=== PATIENT | female | born 1970 | race American Indian/Alaskan Native ===

== ENCOUNTER 2016-08-19 13:58 | Inpatient (IN) | payer OTHER ==
[2016-08-19 14:12] LABS: Basophils % (Auto) 0.4 % (0.0-1.8); Eosinophils % (Auto) 1.7 % (0.0-4.3); Hematocrit 37.3 % (30.3-42.9); Hemoglobin 11.8 gm/dl (10.1-14.3); Mean Corpuscular HGB Conc 32 % (30-34); Mean Corpuscular Hemoglobin 25 pg (28-32); Mean Corpuscular Volume 79 fl (79-97); Platelet Count 282 K/mm3 (140-440); Red Blood Count 4.73 M/mm3 (3.65-5.03); White Blood Count 6.3 K/mm3 (4.5-11.0)
[2016-08-19 14:17] LABS: INR 0.9 (0.87-1.13)
[2016-08-19 14:18] LABS: Partial Thromboplastin Time 29.6 Sec. (24.2-36.6)
--- NOTE | 2016-08-19 14:24 | Cat Scan Report ---
CT HEAD WITHOUT CONTRAST: HISTORY: CVA. Serial contiguous axial images were obtained through the cranium. Intravenous contrast material was not administered. The ventricles are normal in size and appearance. There is no mass effect or midline shift. No areas of abnormally increased or decreased attenuation are seen. No mass lesion is seen. The mastoid air cells and visualized portions of the sinuses are normal. IMPRESSION: Cranial CT scan within normal limits. These findings were discussed with Dr. Garces in the emergency department at 1417 hrs.
[2016-08-19 14:26] LABS: Anion Gap 16 mmol/L; BUN/Creatinine Ratio 11.66; Blood Urea Nitrogen 7 mg/dL (7-17); Calcium 8.4 mg/dL (8.4-10.2); Carbon Dioxide 24 mmol/L (22-30); Chloride 103.6 mmol/L (98-107); Glucose 92 mg/dL (65-100); Potassium 3.1 mmol/L (3.6-5.0); Sodium 140 mmol/L (137-145)
--- NOTE | 2016-08-19 14:46 | Emergency Department Report ---
HPI - General Chief Complaint: Neuro Symptoms/Deficit Time Seen by Provider: 08/19/16 14:01 - HPI HPI: The patient is a 46-year-old female who presents for evaluation of strokelike symptoms. The patient reports sudden onset of change in speech at 12:15 PM, 2 hours prior to arrival, constant since onset and severe. Per EMS the patient was found to have left-sided facial drooping, slurred speech, and difficulty finding words. The patient denies fever, head injury, headache, neck pain, neck stiffness, vision or hearing changes, smell or taste changes, paresthesias, seizure-like activity, urine or bowel incontinence or retention, or other focal neurological deficit. ED Past Medical Hx - Past Medical History Previous Medical History?: No - Surgical History Past Surgical History?: No - Social History Smoking Status: Never Smoker Substance Use Type: None - Medications Home Medications: Home Medications Medication Instructions Recorded Confirmed Last Taken Type No Known Home Medications [No 08/19/16 08/19/16 Unknown History Reported Home Medications] ED Review of Systems ROS: Stated complaint: POSS STROKE Other details as noted in HPI Constitutional: denies: fever Eyes: denies: vision change ENT: denies: throat pain Respiratory: denies: shortness of breath Cardiovascular: denies: chest pain Gastrointestinal: denies: abdominal pain Genitourinary: denies: dysuria Musculoskeletal: denies: back pain Skin: denies: rash Neurological: other (dysarthria and aphasia) Psychiatric: denies: visual hallucinations Hematological/Lymphatic: denies: easy bleeding, easy bruising Physical Exam - Physical Exam Vital Signs: Vital Signs 08/19/16 14:30 Temperature 97.3 F L Pulse Rate 86 Respiratory 16 Rate Blood Pressure 142/87 [Left] O2 Sat by Pulse 99 Oximetry Physical Exam: General: well-nourished, well-developed, no acute distress Head: Normocephalic, atraumatic Eyes: normal sclera ENT: Mucous membranes are pink and moist Neck: trachea midline, neck supple, No neck stiffness, no cervical adenopathy Respiratory: Breath sounds equal bilaterally, no wheezing, rales, or rhonchi Cardio: S1 and S2 present, no murmurs, rubs, gallops, capillary refill is brisk Abdomen: Normoactive bowel sounds, soft abdomen, no rigidity, no guarding or rebound tenderness Musc: No pitting edema Skin: No rash Neuro: Alert oriented 3, no facial drooping, mild dysarthria present, no aphasia, no pronator drift, no sensation or motor deficit in the arms or legs, no coordination deficit with finger to nose testing, reflexes 2+ and symmetric on DTR testing, no obvious gross neuro deficit Psych: Normal affect ED Course Vital Signs 08/19/16 14:30 Temperature 97.3 F L Pulse Rate 86 Respiratory 16 Rate Blood Pressure 142/87 [Left] O2 Sat by Pulse 99 Oximetry - Reevaluation(s) Reevaluation #1: 08/19/16 14:32 The patient was reevaluated and found to exhibit improvement in slurred speech, dysarthria now mild. The patient is now only positive for mild dysarthria and has no expressive aphasia, motor deficit, sensation deficit, or other identifiable focal neurological deficit. The patient is not a candidate for TPA as she only has a Nihs score of 1. The tele-neurologist is contacted to evaluate the patient. 08/19/16 14:49 ED Medical Decision Making - Lab Data Result diagrams: 08/19/16 14:05 08/19/16 14:00 - Medical Decision Making The patient was seen and examined by myself. The patient is placed on a threat monitoring analyst and continuous pulse ox. On initial evaluation, the patient was found to be in no distress. Evaluation orders were placed. CAT scan of the head is negative for acute intracranial disease process. The patient is reevaluated and found to have only mild dysarthria now, resolved aphasia, and no other obvious neuro deficits. The on-call neurologist Dr. León submits that the patient is not a candidate for TPA. The patient given a tablet of aspirin for suspected TIA. The on-call hospitalist service was contacted. They agreed to admit the patient for further treatment and close monitoring. The ED admit order was placed. The patient was admitted in guarded condition. Critical care attestation.: If time is entered above; I have spent that time in minutes in the direct care of this critically ill patient, excluding procedure time. ED Disposition Clinical Impression: CVA (cerebral vascular accident) Qualifiers: CVA mechanism: unspecified Qualified Code(s): I63.9 - Cerebral infarction, unspecified Disposition: OP ADMITTED IP TO THIS HOSP Is pt being admited?: Yes Does the pt Need Aspirin: Yes Condition: Stable Time of Disposition: 15:09
[2016-08-19] MEDS ORDERED: BABY ASPIRIN PO ONE (15:09)
--- NOTE | 2016-08-19 15:37 | Admit Criteria Form ---
Admission Criteria Documentation: STROKE: ISCHEMIC Clinical Indications for Admission to Inpatient Care (Place 'X' for any and all applicable criteria): Admission is indicated for ANY ONE of the following(1)(2)(3)(4): [ X]I. Acute stroke Extended stay beyond goal length of stay may be needed for(1)(2) [ ]a) Major deficit or clinical deterioration [ ]b) Hospital-acquired infection (eg, urinary tract infection, pneumonia) [ ]c) Embolic cause of stroke [ ]d) Venous thromboembolism(9) [ ]e) Seizures [ ]f) Bleeding (eg, cerebral) [ ]g) Increased intracranial pressure [ ]h) Comorbidities [ ]i) Surgical intervention The original [facility] content created by [facility] has been revised. The portions of the content which have been revised are identified through the use of italic text or in bold, and [facility] has neither reviewed nor approved the modified material. All other unmodified content is copyright [facility]. Please see references footnoted in the original [facility] [employer] edition 2016
[2016-08-19 16:27] LABS: Urine Drugs of Abuse Note Disclamer
[2016-08-19 16:43] LABS: Bacteria,Urine 1+ /HPF (Negative); Bilirubin,Urine NEG (Negative); Blood,Urine NEG (Negative); Ketones,Urine NEG (Negative); Leukocyte Esterase,Urine NEG (Negative); Mucus,Urine 2+ /HPF; Nitrite,Urine NEG (Negative); Protein,Urine <15 mg/dL mg/dL (Negative); Urobilinogen,Urine < 2.0 mg/dL (<2.0); WBC,Urine < 1.0 /HPF (0.0-6.0)
--- NOTE | 2016-08-19 18:30 | History and Physical Report ---
History of Present Illness Date of examination: 08/19/16 Date of admission: 08/19/16 15:21 Chief complaint: Right-sided numbness and weakness History of present illness: This is a 46 y/o female with no past medical history presented with right-sided weakness with right-sided facial droop, dysarthria and numbness reported by the EMS. Her symptoms started around 12:00 this afternoon, by the time she presented to the ER she only has dysarthria, but facial droop or right-sided weakness resolved. She also c/o left sided chest pain, pressure type rediates to the back bilaterally, 7/10 in intensity. her chest pain also improved when she came to ER. Her CT of the head didn't show any acute process, K level was 3.1, normal troponin. Neurology did not recommend any TPA as her symptom already started to get better. She'll be admitted to be monitored with stroke protocol. Past medical History: Borderline hypertension not on any medication Past surgical History: None Social History: Lives with family, denies any smoking, drinking and elicit drug abuse. Family History: Significant for CVA in parents. Review of System: Constitutional: no fever, no chills, no weight loss Ears, eyes, nose, mouth and throat: no nasal congestion, no nasal discharge, no sinus pressure, no vision change, no red eye. Neck: No neck pain or rigidity. Cardiovascular: No chest pain, no orthopnea, no palpitations, no leg swelling Respiratory: No shortness of breath, no cough, no congestion, no wheezing Gastrointestinal: no abdominal pain, no nausea, no vomiting Genitourinary : no dysuria, no hematuria Musculoskeletal: no joint swelling or muscle ache Integumentary: no rash, no pruritis Neurological: no parathesias, + numbness, no tingling Endocrine: no cold or heat intolerance, no polyuria or polydipsia Hematologic/Lymphatic: no easy bruising, no easy bleeding, no gland swelling Allergic/Immunologic: no urticaria, no angioedema. Medications and Allergies Allergies Allergy/AdvReac Type Severity Reaction Status Date / Time No Known Allergies Allergy Unverified 08/19/16 14:02 Home Medications Medication Instructions Recorded Confirmed Last Taken Type No Known Home Medications [No 08/19/16 08/19/16 Unknown History Reported Home Medications] Exam - Physical Exam Narrative exam: GENERAL: well-developed obese AAF lying on bed appeared to be in no discomfort. HEENT: Normocephalic. Atraumatic. No conjunctival congestion or icterus. Patient has moist mucous membranes. NECK: Supple. Trachea midline. CHEST/LUNGS: Clear to auscultated bilaterally, breathing nonlabored. No wheezes crackles or rhonchi. HEART/CARDIOVASCULAR: Regular in rate and rhythm. S1 and S2 positive. ABDOMEN: Abdomen is soft, nontender. Patient has normal bowel sounds. SKIN: There is no rash. Warm and dry. NEURO: No focal motor deficit. Follows command. slowed speech w/ slurring MUSCULOSKELETAL: No joint effusion or tenderness. EXTRIMITY: No edema, no cyanosis or clubbing. PSYCH: Cooperative. - Constitutional Vitals: Temp Pulse Resp BP Pulse Ox 97.3 F L 71 18 137/87 98 08/19/16 14:30 08/19/16 16:58 08/19/16 16:58 08/19/16 16:58 08/19/16 16:58 Results - Labs CBC & Chem 7: 08/19/16 14:05 08/21/16 00:19 Labs: Laboratory Last Values WBC 6.3 K/mm3 (4.5-11.0) 08/19/16 14:05 RBC 4.73 M/mm3 (3.65-5.03) 08/19/16 14:05 Hgb 11.8 gm/dl (10.1-14.3) 08/19/16 14:05 Hct 37.3 % (30.3-42.9) 08/19/16 14:05 MCV 79 fl (79-97) 08/19/16 14:05 MCH 25 pg (28-32) L 08/19/16 14:05 MCHC 32 % (30-34) 08/19/16 14:05 RDW 16.0 % (13.2-15.2) H 08/19/16 14:05 Plt Count 282 K/mm3 (140-440) 08/19/16 14:05 Lymph % (Auto) 41.0 % (13.4-35.0) H 08/19/16 14:05 [place] % (Auto) 10.2 % (0.0-7.3) H 08/19/16 14:05 Eos % (Auto) 1.7 % (0.0-4.3) 08/19/16 14:05 Baso % (Auto) 0.4 % (0.0-1.8) 08/19/16 14:05 Lymph # 2.6 K/mm3 (1.2-5.4) 08/19/16 14:05 [place] # 0.6 K/mm3 (0.0-0.8) 08/19/16 14:05 Eos # 0.1 K/mm3 (0.0-0.4) 08/19/16 14:05 Baso # 0.0 K/mm3 (0.0-0.1) 08/19/16 14:05 Seg Neutrophils % 46.7 % (40.0-70.0) 08/19/16 14:05 Seg Neutrophils # 2.9 K/mm3 (1.8-7.7) 08/19/16 14:05 PT 12.0 Sec. (12.2-14.9) L 08/19/16 14:05 INR 0.90 (0.87-1.13) 08/19/16 14:05 APTT 29.6 Sec. (24.2-36.6) 08/19/16 14:05 Thrombin Time 15.8 Sec. (15.1-19.6) 08/19/16 Unknown Sodium 140 mmol/L (137-145) 08/19/16 14:00 Potassium 3.1 mmol/L (3.6-5.0) L 08/19/16 14:00 Chloride 103.6 mmol/L (98-107) 08/19/16 14:00 Carbon Dioxide 24 mmol/L (22-30) 08/19/16 14:00 Anion Gap 16 mmol/L 08/19/16 14:00 BUN 7 mg/dL (7-17) 08/19/16 14:00 Creatinine 0.6 mg/dL (0.7-1.2) L 08/19/16 14:00 Estimated GFR > 60 ml/min 08/19/16 14:00 BUN/Creatinine Ratio 11.66 % 08/19/16 14:00 Glucose 92 mg/dL (65-100) 08/19/16 14:00 Calcium 8.4 mg/dL (8.4-10.2) 08/19/16 14:00 Troponin T < 0.010 ng/mL (0.00-0.029) 08/19/16 14:00 NT-Pro-B Natriuret Pep 77.60 pg/mL (0-450) 08/19/16 14:25 Urine Color Yellow (Yellow) 08/19/16 16:20 Urine Turbidity Cloudy (Clear) 08/19/16 16:20 Urine pH 8.0 (5.0-7.0) H 08/19/16 16:20 Ur Specific [place] 1.014 (1.003-1.030) 08/19/16 16:20 Urine Protein <15 mg/dl mg/dL (Negative) 08/19/16 16:20 Urine Glucose (UA) Neg mg/dL (Negative) 08/19/16 16:20 Urine Ketones Neg mg/dL (Negative) 08/19/16 16:20 Urine Blood Neg (Negative) 08/19/16 16:20 Urine Nitrite Neg (Negative) 08/19/16 16:20 Urine Bilirubin Neg (Negative) 08/19/16 16:20 Urine Urobilinogen < 2.0 mg/dL (<2.0) 08/19/16 16:20 Ur Leukocyte Esterase Neg (Negative) 08/19/16 16:20 Urine WBC (Auto) < 1.0 /HPF (0.0-6.0) 08/19/16 16:20 Urine RBC (Auto) 2.0 /HPF (0.0-6.0) 08/19/16 16:20 U Epithel Cells (Auto) 4.0 /HPF (0-13.0) 08/19/16 16:20 Urine Bacteria (Auto) 1+ /HPF (Negative) 08/19/16 16:20 Urine Mucus 2+ /HPF 08/19/16 16:20 Urine Opiates Screen Presumptive negative 08/19/16 16:20 Urine Methadone Screen Presumptive negative 08/19/16 16:20 Ur Barbiturates Screen Presumptive negative 08/19/16 16:20 Ur Phencyclidine Scrn Presumptive negative 08/19/16 16:20 Ur Amphetamines Screen Presumptive negative 08/19/16 16:20 U Benzodiazepines Scrn Presumptive negative 08/19/16 16:20 Urine Cocaine Screen Presumptive negative 08/19/16 16:20 U Marijuana (THC) Screen Presumptive negative 08/19/16 16:20 Drugs of Abuse Note Disclamer 08/19/16 16:20 Plasma/Serum Alcohol < 0.01 gm% (0-0.07) 08/19/16 14:25 - Imaging and Cardiology CT Scan - head: report reviewed Assessment and Plan Assessment and plan: Acute CVA with right-sided weakness and dysarthria Hypokalemia, likley due to poor oral intake Left sided chest pain, r/o ACS Obesity, likely due to access calorie Plan: Admit to medicine with stroke protocol Get MRI of the head, carotid Doppler, 2-D echocardiogram Obtain a neurology consult monitor with serial troponin Stress test following MRI head PT/OT/ST eval GI and DVT Px place on aspirin and statin Advance Directives: Yes VTE prophylaxis?: Chemical Plan of care discussed with patient/family: Yes
[2016-08-19] MEDS ORDERED: MILK OF MAGNESIA PO PRN (19:00)
[2016-08-19] MEDS ORDERED: TYLENOL PO PRN (19:00)
[2016-08-19] MEDS ORDERED: REGLAN PO PRN (19:00)
[2016-08-19] MEDS ORDERED: ZOFRAN IV PRN (19:00)
[2016-08-19] MEDS ORDERED: DULCOLAX PR PRN (19:00)
[2016-08-19] MEDS ORDERED: SODIUM CHLORIDE FLUSH SYRINGE 10 ML IV PRN (19:00)
[2016-08-19] MEDS ORDERED: APRESOLINE IV PRN (19:00)
[2016-08-19] MEDS ORDERED: PHENERGAN PR PRN (19:00)
[2016-08-20] MEDS: NACL 0.9% 1000 ML 1,000 ML IV SCH ×2 (00:01→14:43)
[2016-08-20] MEDS: PEPCID IV SCH ×3 (00:02→22:02)
[2016-08-20] MEDS: COLACE PO SCH ×3 (00:02→22:02)
[2016-08-20] MEDS: ZOCOR PO SCH ×2 (00:02→22:02)
[2016-08-20] MEDS: PERCOCET 5/325 PO PRN (05:19)
--- NOTE | 2016-08-20 10:14 | Consultation ---
History of Present Illness Consult date: 08/20/16 Requesting physician: MICHELLE GALICIA Reason for Consult: ? 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 Sx started at 12:30 on 08/19 and worsened over minutes before they improved gradually. There was some report of R facial droop and R sided weakness but pt denies. Sx are constant but waxing and waning and generally improving. There were no clear aggravating, relieving or temporal factors. Severity was such to cause her difficulty rising from seated position. She denies any recent stressors that are new stating she is always stressed. Past History Past Medical History: hypertension Past Surgical History: No surgical history Social history: single, Lives alone Family history: hypertension Medications and Allergies Allergies Allergy/AdvReac Type Severity Reaction Status Date / Time No Known Allergies Allergy Unverified 08/19/16 14:02 Home Medications Medication Instructions Recorded Confirmed Last Taken Type No Known Home Medications [No 08/19/16 08/19/16 Unknown History Reported Home Medications] Active Meds: Active Medications Acetaminophen (Tylenol) 650 mg PO Q4H PRN PRN Reason: Pain, Mild (1-3) Aspirin (Aspirin) 325 mg PO QDAY [facility] Bisacodyl (Dulcolax) 10 mg LA QDAY PRN PRN Reason: Constipation Docusate Sodium (Colace) 100 mg PO BID [facility] Last Admin: 08/20/16 00:02 Dose: 100 mg Famotidine (Pepcid) 20 mg IV BID [facility] Last Admin: 08/20/16 00:02 Dose: 20 mg Hydralazine HCl (Apresoline) 5 mg IV Q6H PRN PRN Reason: Keep SBP between 160-185 mm Hg Sodium Chloride (Nacl 0.9% 1000 Ml) 1,000 mls @ 75 mls/hr IV DIRECT [facility] Last Admin: 08/20/16 00:01 Dose: 75 mls/hr Magnesium Hydroxide (Milk Of Magnesia) 30 ml PO Q4H PRN PRN Reason: Constipation Metoclopramide HCl (Reglan) 10 mg PO Q6H PRN PRN Reason: Nausea And Vomiting Ondansetron HCl (Zofran) 4 mg IV Q8H PRN PRN Reason: N/V unrelieved by Reglan Oxycodone/Acetaminophen (Percocet 5/325) 1 tab PO Q6H PRN PRN Reason: Pain, Moderate (4-6) Last Admin: 08/20/16 05:19 Dose: 1 tab Potassium Chloride (K-Dur) 40 meq PO QDAY [facility] Promethazine HCl (Phenergan) 25 mg LA Q6H PRN PRN Reason: Nausea And Vomiting Simvastatin (Zocor) 20 mg PO QHS [facility] Last Admin: 08/20/16 00:02 Dose: 20 mg Sodium Chloride (Sodium Chloride Flush Syringe 10 Ml) 10 ml IV PRN PRN PRN Reason: LINE FLUSH Review of Systems All systems: negative Constitutional: weakness, malaise, lethargy Neurological: weakness, headaches, change in speech Physical Examination - Vital Signs Vital Signs: Vital Signs Temp Pulse Resp BP Pulse Ox 97.3 F L 86 16 142/87 99 08/19/16 14:30 08/19/16 14:30 08/19/16 14:30 08/19/16 14:30 08/19/16 14:30 - Constitutional General appearance: comfortable - EENT EENT: Present: ATNC, PERRL, mucous membranes moist, hearing intact, vision intact - Respiratory Respiratory: Present: chest non-tender, no respiratory distress - Cardiovascular Cardiovascular: Present: regular rate Extremities: Present: no peripheral edema bilatateraly, no clubbing, cyanosis, no inflammation, no ischemia or petechiae - Gastrointestinal Gastrointestinal: Present: normoactive bowel sounds, non-distended - Integumentary Integumentary: Present: normal - Neurologic Cranial nerve examination: PERRL, EOMI, VFF, V1/V2/V3 grossly intact, face symmetric, tongue midline, intact, intact shoulder shrug, intact cough reflex, intact corneal reflex, normal palatal elevation Speech examination: other (slowed speech w/ slurring but irregular and inconsistent) Sensorimotor examination: intact Detailed motor examination: full strength in all radha Motor examination - right side: 5: biceps, triceps, wrist flexion, wrist extension, limnologist, hip flexors, knee extensors, dorsiflexion, toe extension (EHL) , plantarflexion Motor examination - left side: 5/5: biceps, triceps, wrist flexion, wrist extension, limnologist, hip flexors, knee extensors, dorsiflexion, toe extension (EHL) , plantarflexion Detailed sensory examination: intact, light touch, pain, temperature Reflex and gait examination: intact Reflexes: 2+: ankle, bicep, knee, tricep - Musculoskeletal Musculoskeletal: Present: no fluid collection, no pain, normal range of motion - Psychiatric Psychiatric: Present: mood/affect appropriate, cooperative Results - Laboratory Findings CBC and BMP: 08/19/16 14:05 08/19/16 14:00 Abnormal Lab Findings: Abnormal Labs 08/19/16 08/19/16 08/20/16 16:20 19:51 04:19 POC Glucose 121 H HDL Cholesterol 62 H Urine pH 8.0 H Assessment and Plan 46 YO F Hx borderline HTN p/w acute onset of vague constellation of sx including nonspecific dizziness, ARELLANO, slowed slurred speech, L sided chest pain and diffuse weakness ? R sided predominant. Documented Hx in ED/H&P and my Hx are discrepant. Neuro exam intact aside from irregular inconsistent slowed and slurred speech that appears to be functional. I suspect nonorganic neurological sx e.g. factitious disorder. Will obtain imaging to r/o DOCUMENTUM CONSULTANT lesion. Plan and Recommendation: 1. No indication for pharmacologic thrombolysis with IV tPA or mechanical thrombectomy due to last known normal > 6 hrs from presentation. Current NIHSS 1. 2. Telemetry bed w/ Q4 hour neuro checks 3. Brain imaging: MRI Brain w/o Arnold Stroke Protocol 4. If MRI Brain confirms infarct: A. Vascular Imaging: MRA Head w/o Arnold & MRA Neck w/ Arnold Stroke Protocol OR CTA Head/Neck w/ Contrast OR Bilateral Carotid Duplex U/S B. TTE to eval for possible cardiac source of embolism C. Serum Labs: HgA1c, LDL 5. Permissive HTN for first 24-48 hours: HOB < 30 degrees, isotonic IVF prn and refrain from active Tx of HTN unless BP > 185/105 or pt develops malignant HTN. Can lower MAPs by 10-15% daily to reach goal SBP 120-160 after permissive HTN period or if MRI neg for infarction. 6. Secondary stroke prevention: ASA 325mg Daily x 1 then 81mg QDay & upgrade to full dose statin therapy (Crestor 20mg or 40mg OR Lipitor 40mg or 80mg Daily OR Zocor 40mg QDay) for goal LDL < 70. No firm indication at this point for therapeutic anticoagulation as pt has not had AFib captured on telemetry monitoring. If MRI neg for infarct there is no neurologic indication for ASA/ statin. 7. F/E/N: isotonic IVF prn, prn replete, oral diet as pt passed bedside speech/ swallow eval 8. DVT Prophylaxis 9. Stroke education, PT/OT/Speech Therapy consults, CM evaluation 10. For any changes in neurologic status, pls obtain STAT CTH w/o contrast and call neurology 11. Can consider Psych eval as inpatient or oupt if MRI negative
--- NOTE | 2016-08-20 12:50 | Magnetic Resonance Report ---
MRI of the brain without contrast. Procedure: Routine brain protocol without contrast. Findings: There are scattered areas of restricted diffusion in the left lateral aspect of the cerebellar vermis. These are arranged in a somewhat linear distribution in the AP plane. No additional areas of restricted diffusion are seen. Minimal coexistent edema is seen in the vermis. The brainstem appears normal. The ventricles are normal in size and contour. There are no masses or extra-axial collections. The wright-white matter junction is normal treated pituitary gland is unremarkable. The visualized extracranial structures are normal. Impression: Acute infarct involving the cerebellar vermis.
[2016-08-20] MEDS: ASPIRIN PO SCH (13:04)
[2016-08-20] MEDS: K-DUR PO SCH (13:05)
[2016-08-20 14:19] LABS: Anion Gap 18 mmol/L; BUN/Creatinine Ratio 11.66; Blood Urea Nitrogen 7 mg/dL (7-17); Calcium 8.4 mg/dL (8.4-10.2); Carbon Dioxide 23 mmol/L (22-30); Chloride 104.9 mmol/L (98-107); Glucose 102 mg/dL (65-100); Potassium 3.4 mmol/L (3.6-5.0); Sodium 142 mmol/L (137-145)
--- NOTE | 2016-08-20 15:20 | Progress Note ---
Assessment and Plan Assessment and plan: Acute cerebellar vermis CVA with dysarthria Acute chest pain, r/o ACS hypokalemia, likely due to less oral intake Obesity, likely due to access calorie Plan: cont with stroke protocol MRI of the head showed acute CVA, carotid Doppler shows <50% stenosis, 2-D echocardiogram report pending neurology cfollowing PT/OT/ST eval GI and DVT Px cont on aspirin and statin stress test in the am History Interval history: Patient seen and examined. Medical records and medication list reviewed. No acute event overnight noted by the RN. Patient still has significant dysarthia states that chest pain now resolved Discussed plan of care at bedside with patient. Hospitalist Physical - Physical exam Narrative exam: GENERAL: well-developed obese AAF lying on bed appeared to be in no discomfort. HEENT: Normocephalic. Atraumatic. No conjunctival congestion or icterus. Patient has moist mucous membranes. NECK: Supple. Trachea midline. CHEST/LUNGS: Clear to auscultated bilaterally, breathing nonlabored. No wheezes crackles or rhonchi. HEART/CARDIOVASCULAR: Regular in rate and rhythm. S1 and S2 positive. ABDOMEN: Abdomen is soft, nontender. Patient has normal bowel sounds. SKIN: There is no rash. Warm and dry. NEURO: No focal motor deficit. Follows command. slowed speech w/ slurring MUSCULOSKELETAL: No joint effusion or tenderness. EXTRIMITY: No edema, no cyanosis or clubbing. PSYCH: Cooperative. - Constitutional Vitals: Temp Pulse Resp BP Pulse Ox 97.9 F 81 18 133/75 97 08/20/16 13:00 08/20/16 13:00 08/20/16 13:00 08/20/16 13:00 08/20/16 13:00 Results - Labs CBC & Chem 7: 08/19/16 14:05 08/20/16 13:36 Labs: Laboratory Last Values WBC 6.3 K/mm3 (4.5-11.0) 08/19/16 14:05 RBC 4.73 M/mm3 (3.65-5.03) 08/19/16 14:05 Hgb 11.8 gm/dl (10.1-14.3) 08/19/16 14:05 Hct 37.3 % (30.3-42.9) 08/19/16 14:05 MCV 79 fl (79-97) 08/19/16 14:05 MCH 25 pg (28-32) L 08/19/16 14:05 MCHC 32 % (30-34) 08/19/16 14:05 RDW 16.0 % (13.2-15.2) H 08/19/16 14:05 Plt Count 282 K/mm3 (140-440) 08/19/16 14:05 Lymph % (Auto) 41.0 % (13.4-35.0) H 08/19/16 14:05 [place] % (Auto) 10.2 % (0.0-7.3) H 08/19/16 14:05 Eos % (Auto) 1.7 % (0.0-4.3) 08/19/16 14:05 Baso % (Auto) 0.4 % (0.0-1.8) 08/19/16 14:05 Lymph # 2.6 K/mm3 (1.2-5.4) 08/19/16 14:05 [place] # 0.6 K/mm3 (0.0-0.8) 08/19/16 14:05 Eos # 0.1 K/mm3 (0.0-0.4) 08/19/16 14:05 Baso # 0.0 K/mm3 (0.0-0.1) 08/19/16 14:05 Seg Neutrophils % 46.7 % (40.0-70.0) 08/19/16 14:05 Seg Neutrophils # 2.9 K/mm3 (1.8-7.7) 08/19/16 14:05 PT 12.0 Sec. (12.2-14.9) L 08/19/16 14:05 INR 0.90 (0.87-1.13) 08/19/16 14:05 APTT 29.6 Sec. (24.2-36.6) 08/19/16 14:05 Thrombin Time 15.8 Sec. (15.1-19.6) 08/19/16 Unknown Sodium 142 mmol/L (137-145) 08/20/16 13:36 Potassium 3.4 mmol/L (3.6-5.0) L 08/20/16 13:36 Chloride 104.9 mmol/L (98-107) 08/20/16 13:36 Carbon Dioxide 23 mmol/L (22-30) 08/20/16 13:36 Anion Gap 18 mmol/L 08/20/16 13:36 BUN 7 mg/dL (7-17) 08/20/16 13:36 Creatinine 0.6 mg/dL (0.7-1.2) L 08/20/16 13:36 Estimated GFR > 60 ml/min 08/20/16 13:36 BUN/Creatinine Ratio 11.66 % 08/20/16 13:36 Glucose 102 mg/dL (65-100) H 08/20/16 13:36 POC Glucose 121 (70-105) H 08/19/16 19:51 Calcium 8.4 mg/dL (8.4-10.2) 08/20/16 13:36 Troponin T < 0.010 ng/mL (0.00-0.029) 08/20/16 13:36 NT-Pro-B Natriuret Pep 77.60 pg/mL (0-450) 08/19/16 14:25 Triglycerides 56 mg/dL (2-149) 08/20/16 04:19 Cholesterol 167 mg/dL (50-199) 08/20/16 04:19 LDL Cholesterol Direct 94 mg/dL (50-130) 08/20/16 04:19 HDL Cholesterol 62 mg/dL (40-59) H 08/20/16 04:19 Cholesterol/HDL Ratio 2.69 % 08/20/16 04:19 Urine Color Yellow (Yellow) 08/19/16 16:20 Urine Turbidity Cloudy (Clear) 08/19/16 16:20 Urine pH 8.0 (5.0-7.0) H 08/19/16 16:20 Ur Specific [place] 1.014 (1.003-1.030) 08/19/16 16:20 Urine Protein <15 mg/dl mg/dL (Negative) 08/19/16 16:20 Urine Glucose (UA) Neg mg/dL (Negative) 08/19/16 16:20 Urine Ketones Neg mg/dL (Negative) 08/19/16 16:20 Urine Blood Neg (Negative) 08/19/16 16:20 Urine Nitrite Neg (Negative) 08/19/16 16:20 Urine Bilirubin Neg (Negative) 08/19/16 16:20 Urine Urobilinogen < 2.0 mg/dL (<2.0) 08/19/16 16:20 Ur Leukocyte Esterase Neg (Negative) 08/19/16 16:20 Urine WBC (Auto) < 1.0 /HPF (0.0-6.0) 08/19/16 16:20 Urine RBC (Auto) 2.0 /HPF (0.0-6.0) 08/19/16 16:20 U Epithel Cells (Auto) 4.0 /HPF (0-13.0) 08/19/16 16:20 Urine Bacteria (Auto) 1+ /HPF (Negative) 08/19/16 16:20 Urine Mucus 2+ /HPF 08/19/16 16:20 Urine Opiates Screen Presumptive negative 08/19/16 16:20 Urine Methadone Screen Presumptive negative 08/19/16 16:20 Ur Barbiturates Screen Presumptive negative 08/19/16 16:20 Ur Phencyclidine Scrn Presumptive negative 08/19/16 16:20 Ur Amphetamines Screen Presumptive negative 08/19/16 16:20 U Benzodiazepines Scrn Presumptive negative 08/19/16 16:20 Urine Cocaine Screen Presumptive negative 08/19/16 16:20 U Marijuana (THC) Screen Presumptive negative 08/19/16 16:20 Drugs of Abuse Note Disclamer 08/19/16 16:20 Plasma/Serum Alcohol < 0.01 gm% (0-0.07) 08/19/16 14:25 - Imaging and Cardiology CT Scan - head: report reviewed MRI - head: report reviewed
[2016-08-21] MEDS: NACL 0.9% 1000 ML 1,000 ML IV SCH (03:23)
[2016-08-21] MEDS: PERCOCET 5/325 PO PRN (04:40)
[2016-08-21] MEDS ORDERED: LEXISCAN IV ONE (08:42)
--- NOTE | 2016-08-21 10:46 | Progress Note ---
Assessment and Plan 46 YO F Hx borderline HTN p/w acute onset of vague constellation of sx including nonspecific dizziness, ARELLANO, slowed slurred speech, L sided chest pain and diffuse weakness ? R sided predominant. Documented Hx in ED/H&P and my Hx are discrepant. Neuro exam intact aside from irregular inconsistent slowed and slurred speech that appeared to be functional. I suspected nonorganic neurological sx e.g. factitious disorder but surprisingly MRI Brain identified L cerebellar/vermis infarct with unclear mechanism for stroke. CDs neg. TTE neg. LDL 94 Plan and Recommendation: 1. Telemetry bed w/ Q4 hour neuro checks 2. SRIKANTH w/ bubble 3. MRA Head/Neck 4. Stroke in [place] Eval: ESR/CRP, Coags, Toxicology, RPR/VDRL, If Febrile-BCx, LP; Hypercoag screen-Protein C Activity, Protein S Ag, Antithrombin III, Activated Protein C resistance, Factor V Leiden, RVVT or APLAbs, Beta-2 GP Ab, Fibrinogen, Prothrombin gene [id number] mutation, MTHFR C677T, JIL-1, HIV, TERE, Lactic Acid, Homocysteine, Cryoglobulin, Complement level, ANCA, Scl-70 Ab, anti -centromere Ab, Anti-Ro (SSA)/Anti-La (SSB), SCAR, Antiproteinase 3, Lipoprotein A, 5. Can lower MAPs by 10-15% daily to reach goal SBP 120-160 as permissive HTN period complete. 6. Secondary stroke prevention: ASA 325mg Daily x 1 then 81mg QDay & upgrade to full dose statin therapy (Crestor 20mg or 40mg OR Lipitor 40mg or 80mg Daily OR Zocor 40mg QDay) for goal LDL < 70. 7. F/E/N: isotonic IVF prn, prn replete, oral diet as pt passed bedside speech/ swallow eval 8. DVT Prophylaxis 9. Stroke education, PT/OT/Speech Therapy consults, CM evaluation 10. For any changes in neurologic status, pls obtain STAT CTH w/o contrast and call neurology Subjective Date of service: 08/21/16 Principal diagnosis: slurred speech, weakness Interval history: improved presenting sx. MRI completed. Objective - Vital Sign Vital Signs - 12hr 08/21/16 08/21/16 08/21/16 00:00 04:00 09:18 Temperature 98.5 F 98.1 F 97.9 F Pulse Rate [ 72 68 68 Right Radial] Respiratory 18 18 18 Rate Blood Pressure 114/68 133/81 122/71 [Right Arm] O2 Sat by Pulse 98 97 96 Oximetry - General Apperance Constitutional: comfortable - EENT EENT: ATNC, PERRL, mucous membranes moist, hearing intact, vision intact - Respiratory Respiratory: chest non-tender, normal breath sounds, no respiratory distress - Cardiovascular Cardiovascular: regular rate Extremities: no peripheral edema bilat, no clubbing, cyanosis, no inflammation, no ischemia or petechiae - Gastrointestinal Gastrointestinal: normoactive bowel sounds, non-distended - Integumentary Integumentary: normal - Neurologic Cranial nerve examination: PERRL, EOMI, VFF, V1/V2/V3 grossly intact, face symmetric, tongue midline, intact, intact shoulder shrug, intact cough reflex, Intact Vestibulo-ocular r, intact corneal reflex, normal palatal elevation Speech examination: other (slight dysarthria) Detailed motor examination: full strength in all radha Motor examination - right side: 5/5: biceps, triceps, wrist flexion, wrist extension, rv mechanic, hip flexors, knee extensors, dorsiflexion, toe extension (EHL) , plantarflexion Motor examination - left side: 5/5: biceps, triceps, wrist flexion, wrist extension, rv mechanic, hip flexors, knee extensors, dorsiflexion, toe extension (EHL) , plantarflexion Detailed sensory examination: intact, light touch, temperature Reflex and gait examination: intact Reflexes: 2+: ankle, bicep, knee, tricep - Musculoskeletal Musculoskeletal: no fluid collection, no pain, normal range of motion - Psychiatric Psychiatric: mood/affect appropriate, cooperative - Laboratory Findings CBC and BMP: 08/19/16 14:05 08/21/16 00:19 Abnormal Lab Findings: Abnormal Labs 08/19/16 08/19/16 08/20/16 16:20 19:51 04:19 Potassium Creatinine Glucose POC Glucose 121 H HDL Cholesterol 62 H Urine pH 8.0 H 08/20/16 13:36 Potassium 3.4 L Creatinine 0.6 L Glucose 102 H POC Glucose HDL Cholesterol Urine pH
--- NOTE | 2016-08-21 11:22 | Treadmill Report ---
INDICATION FOR PROCEDURE: Chest pain. ORDERING PHYSICIAN: Reina Pulliam MD FINDINGS: There is no scintigraphic evidence of myocardial ischemia. The left ventricle is normal in size and systolic function. The left ventricular ejection fraction is measured at 59%. Normal wall motion and wall thickening is noted on gated imaging. CONCLUSION: Normal perfusion scan. JOB# [id number] AKYulissa/NTS
[2016-08-21] MEDS: ASPIRIN PO SCH (12:14)
[2016-08-21] MEDS: K-DUR PO SCH (12:14)
[2016-08-21] MEDS: COLACE PO SCH ×2 (12:14→21:54)
[2016-08-21] MEDS: PEPCID IV SCH (12:14)
--- NOTE | 2016-08-21 12:53 | Magnetic Resonance Report ---
MRA HEAD WITHOUT CONTRAST HISTORY: Stroke, CVA. [id number] imaging with MIP reformations of the [place] of [place] is submitted. The arteries appear widely patent and free of hemodynamically significant stenosis or aneurysm dilatation. Both vertebral arteries are identified appearing patent as well. IMPRESSION: Unremarkable MRA head.
--- NOTE | 2016-08-21 12:53 | Magnetic Resonance Report ---
MRA NECK WITH AND WITHOUT CONTRAST HISTORY: Stroke, CVA. TECHNIQUE: [id number] imaging with MIP reformations of the carotid arterial system is submitted. FINDINGS: The carotid arteries appear widely patent free of hemodynamically significant stenosis or aneurysm dilatation. Both vertebral arteries are identified appearing patent as well. An aortic arch variance is present. The left vertebral artery arises from the aortic arch. IMPRESSION: Unremarkable MRA of the neck. No evidence for dissection or occlusion.
[2016-08-21 13:15] LABS: Erythrocyte Sedimentation Rate 41 mm/Hr (0-20)
--- NOTE | 2016-08-21 13:24 | Progress Note ---
Assessment and Plan Assessment and plan: Acute CVA with right-sided weakness and dysarthria Hypokalemia, likley due to poor oral intake Left sided chest pain, ACS rulled out, liklely musculoskeletal Obesity, likely due to access calorie Plan: cont with stroke protocol MRI of the head showed acute CVA, carotid Doppler shows <50% stenosis, 2-D echocardiogram with normal EF, stress test normal neurology following and recommended SRIKANTH with bubble study and hypercoaguable work up GI and DVT Px cont on aspirin and statin consult cardiology History Interval history: Patient seen and examined. Medical records and medication list reviewed. No acute event overnight noted by the RN. Patient is asymptomatic today s/p stress test today and that was normal Discussed plan of care at bedside with patient. Hospitalist Physical - Physical exam Narrative exam: GENERAL: well-developed obese AAF lying on bed appeared to be in no discomfort. HEENT: Normocephalic. Atraumatic. No conjunctival congestion or icterus. Patient has moist mucous membranes. NECK: Supple. Trachea midline. CHEST/LUNGS: Clear to auscultated bilaterally, breathing nonlabored. No wheezes crackles or rhonchi. HEART/CARDIOVASCULAR: Regular in rate and rhythm. S1 and S2 positive. ABDOMEN: Abdomen is soft, nontender. Patient has normal bowel sounds. SKIN: There is no rash. Warm and dry. NEURO: No focal motor deficit. Follows command. speech normal MUSCULOSKELETAL: No joint effusion or tenderness. EXTRIMITY: No edema, no cyanosis or clubbing. PSYCH: Cooperative. - Constitutional Vitals: Temp Pulse Resp BP Pulse Ox 97.9 F 68 18 122/71 96 08/21/16 09:18 08/21/16 09:18 08/21/16 09:18 08/21/16 09:18 08/21/16 09:18 Results - Labs CBC & Chem 7: 08/19/16 14:05 08/21/16 00:19 Labs: Laboratory Last Values WBC 6.3 K/mm3 (4.5-11.0) 08/19/16 14:05 RBC 4.73 M/mm3 (3.65-5.03) 08/19/16 14:05 Hgb 11.8 gm/dl (10.1-14.3) 08/19/16 14:05 Hct 37.3 % (30.3-42.9) 08/19/16 14:05 MCV 79 fl (79-97) 08/19/16 14:05 MCH 25 pg (28-32) L 08/19/16 14:05 MCHC 32 % (30-34) 08/19/16 14:05 RDW 16.0 % (13.2-15.2) H 08/19/16 14:05 Plt Count 282 K/mm3 (140-440) 08/19/16 14:05 Lymph % (Auto) 41.0 % (13.4-35.0) H 08/19/16 14:05 [place] % (Auto) 10.2 % (0.0-7.3) H 08/19/16 14:05 Eos % (Auto) 1.7 % (0.0-4.3) 08/19/16 14:05 Baso % (Auto) 0.4 % (0.0-1.8) 08/19/16 14:05 Lymph # 2.6 K/mm3 (1.2-5.4) 08/19/16 14:05 [place] # 0.6 K/mm3 (0.0-0.8) 08/19/16 14:05 Eos # 0.1 K/mm3 (0.0-0.4) 08/19/16 14:05 Baso # 0.0 K/mm3 (0.0-0.1) 08/19/16 14:05 Seg Neutrophils % 46.7 % (40.0-70.0) 08/19/16 14:05 Seg Neutrophils # 2.9 K/mm3 (1.8-7.7) 08/19/16 14:05 ESR 41 mm/Hr (0-20) 08/21/16 12:15 PT 12.0 Sec. (12.2-14.9) L 08/19/16 14:05 INR 0.90 (0.87-1.13) 08/19/16 14:05 APTT 29.6 Sec. (24.2-36.6) 08/19/16 14:05 Thrombin Time 15.8 Sec. (15.1-19.6) 08/19/16 Unknown Sodium 142 mmol/L (137-145) 08/20/16 13:36 Potassium 3.7 mmol/L (3.6-5.0) 08/21/16 00:19 Chloride 104.9 mmol/L (98-107) 08/20/16 13:36 Carbon Dioxide 23 mmol/L (22-30) 08/20/16 13:36 Anion Gap 18 mmol/L 08/20/16 13:36 BUN 7 mg/dL (7-17) 08/20/16 13:36 Creatinine 0.6 mg/dL (0.7-1.2) L 08/20/16 13:36 Estimated GFR > 60 ml/min 08/20/16 13:36 BUN/Creatinine Ratio 11.66 % 08/20/16 13:36 Glucose 102 mg/dL (65-100) H 08/20/16 13:36 POC Glucose 121 (70-105) H 08/19/16 19:51 Lactic Acid 0.8 mmol/L (0.7-2.0) 08/21/16 12:15 Calcium 8.4 mg/dL (8.4-10.2) 08/20/16 13:36 Troponin T < 0.010 ng/mL (0.00-0.029) 08/21/16 04:29 NT-Pro-B Natriuret Pep 77.60 pg/mL (0-450) 08/19/16 14:25 Triglycerides 56 mg/dL (2-149) 08/20/16 04:19 Cholesterol 167 mg/dL (50-199) 08/20/16 04:19 LDL Cholesterol Direct 94 mg/dL (50-130) 08/20/16 04:19 HDL Cholesterol 62 mg/dL (40-59) H 08/20/16 04:19 Cholesterol/HDL Ratio 2.69 % 08/20/16 04:19 Urine Color Yellow (Yellow) 08/19/16 16:20 Urine Turbidity Cloudy (Clear) 08/19/16 16:20 Urine pH 8.0 (5.0-7.0) H 08/19/16 16:20 Ur Specific [place] 1.014 (1.003-1.030) 08/19/16 16:20 Urine Protein <15 mg/dl mg/dL (Negative) 08/19/16 16:20 Urine Glucose (UA) Neg mg/dL (Negative) 08/19/16 16:20 Urine Ketones Neg mg/dL (Negative) 08/19/16 16:20 Urine Blood Neg (Negative) 08/19/16 16:20 Urine Nitrite Neg (Negative) 08/19/16 16:20 Urine Bilirubin Neg (Negative) 08/19/16 16:20 Urine Urobilinogen < 2.0 mg/dL (<2.0) 08/19/16 16:20 Ur Leukocyte Esterase Neg (Negative) 08/19/16 16:20 Urine WBC (Auto) < 1.0 /HPF (0.0-6.0) 08/19/16 16:20 Urine RBC (Auto) 2.0 /HPF (0.0-6.0) 08/19/16 16:20 U Epithel Cells (Auto) 4.0 /HPF (0-13.0) 08/19/16 16:20 Urine Bacteria (Auto) 1+ /HPF (Negative) 08/19/16 16:20 Urine Mucus 2+ /HPF 08/19/16 16:20 Urine Opiates Screen Presumptive negative 08/19/16 16:20 Urine Methadone Screen Presumptive negative 08/19/16 16:20 Ur Barbiturates Screen Presumptive negative 08/19/16 16:20 Ur Phencyclidine Scrn Presumptive negative 08/19/16 16:20 Ur Amphetamines Screen Presumptive negative 08/19/16 16:20 U Benzodiazepines Scrn Presumptive negative 08/19/16 16:20 Urine Cocaine Screen Presumptive negative 08/19/16 16:20 U Marijuana (THC) Screen Presumptive negative 08/19/16 16:20 Drugs of Abuse Note Disclamer 08/19/16 16:20 Plasma/Serum Alcohol < 0.01 gm% (0-0.07) 08/19/16 14:25
[2016-08-21 14:05] LABS: HIV-1 Antigen p24 Non React (Non React); HIVR-1/2 Ab Non React (Non React)
--- NOTE | 2016-08-21 15:27 | Consultation ---
History of Present Illness Consult date: 08/21/16 History of present illness: This is a 46yr old woman who presented 08/19 with acute onset of slurred speech and facial droop admitted for suspected CVA. Patient considered not a candidate for IV TPA as her symptoms resolved while in the ED. A Head CT negative for acute intracranial process. MRA of head reports no acute abnormalities. Today she had a persantine stress thallium test that reports a normal myocardial perfusion. An echocardiogram reports a normal left ventricular systolic function, ejection fraction 50-55%. Neurologist has recommended a SRIKANTH with bubble study for further evaluation thus this cardiac consultation. Past History Past Medical History: hypertension Past Surgical History: No surgical history Social history: single, Lives alone Family history: hypertension Medications and Allergies Allergies Allergy/AdvReac Type Severity Reaction Status Date / Time No Known Allergies Allergy Unverified 08/19/16 14:02 Home Medications Medication Instructions Recorded Confirmed Last Taken Type No Known Home Medications [No 08/19/16 08/19/16 Unknown History Reported Home Medications] Active Meds: Active Medications Acetaminophen (Tylenol) 650 mg PO Q4H PRN PRN Reason: Pain, Mild (1-3) Aspirin (Aspirin) 325 mg PO QDAY [facility] Last Admin: 08/21/16 12:14 Dose: 325 mg Bisacodyl (Dulcolax) 10 mg ME QDAY PRN PRN Reason: Constipation Docusate Sodium (Colace) 100 mg PO BID [facility] Last Admin: 08/21/16 12:14 Dose: 100 mg Famotidine (Pepcid) 20 mg IV BID [facility] Last Admin: 08/21/16 12:14 Dose: Not Given Hydralazine HCl (Apresoline) 5 mg IV Q6H PRN PRN Reason: Keep SBP between 160-185 mm Hg Sodium Chloride (Nacl 0.9% 1000 Ml) 1,000 mls @ 75 mls/hr IV DIRECT [facility] Last Admin: 08/21/16 03:23 Dose: 75 mls/hr Magnesium Hydroxide (Milk Of Magnesia) 30 ml PO Q4H PRN PRN Reason: Constipation Metoclopramide HCl (Reglan) 10 mg PO Q6H PRN PRN Reason: Nausea And Vomiting Ondansetron HCl (Zofran) 4 mg IV Q8H PRN PRN Reason: N/V unrelieved by Reglan Oxycodone/Acetaminophen (Percocet 5/325) 1 tab PO Q6H PRN PRN Reason: Pain, Moderate (4-6) Last Admin: 08/21/16 04:40 Dose: 1 tab Potassium Chloride (K-Dur) 40 meq PO QDAY [facility] Last Admin: 08/21/16 12:14 Dose: 40 meq Promethazine HCl (Phenergan) 25 mg ME Q6H PRN PRN Reason: Nausea And Vomiting Simvastatin (Zocor) 40 mg PO QHS [facility] Sodium Chloride (Sodium Chloride Flush Syringe 10 Ml) 10 ml IV PRN PRN PRN Reason: LINE FLUSH Physical Examination Vital Signs Temp Pulse Resp BP Pulse Ox 97.3 F L 86 16 142/87 99 08/19/16 14:30 08/19/16 14:30 08/19/16 14:30 08/19/16 14:30 08/19/16 14:30 General appearance: no acute distress HEENT: Positive: PERRL Neck: Positive: trachea midline Cardiac: Positive: Reg Rate and Rhythm Lungs: Positive: Decreased Breath Sounds Neuro: Positive: Grossly Intact Results 08/19/16 14:05 08/21/16 00:19 Comprehensive Metabolic Panel 08/21/16 Range/Units 00:19 Potassium 3.7 (3.6-5.0) mmol/L EKG interpretations - EKG Sinus rhythms and dysrhythmias: sinus rhythm Assessment and Plan Suspected TIA normal myocardial perfusion on MPI this admission normal LVEF on echo Head CT negative for acute intracranial process MRA of head reports no acute abnormalities For planned transesophagel echocardiogram tomorrow.
[2016-08-21] MEDS: PEPCID PO SCH (21:54)
[2016-08-21] MEDS ORDERED: ZOCOR PO SCH ×2 (22:00)
[2016-08-22] MEDS: PERCOCET 5/325 PO PRN (08:03)
--- NOTE | 2016-08-22 09:35 | Progress Note ---
Assessment and Plan 46 YO F Hx borderline HTN p/w acute onset of vague constellation of sx including nonspecific dizziness, ARELLANO, slowed slurred speech, L sided chest pain and diffuse weakness ? R sided predominant. Documented Hx in ED/H&P and my Hx are discrepant. Neuro exam intact aside from irregular inconsistent slowed and slurred speech that appeared to be functional. I suspected nonorganic neurological sx e.g. factitious disorder but surprisingly MRI Brain identified L cerebellar/vermis infarct with unclear mechanism for stroke. CDs neg. TTE neg. LDL 94. MRA Head/Neck neg. Plan and Recommendation: 1. Telemetry bed w/ Q4 hour neuro checks 2. SRIKANTH w/ bubble 08/22 3. Stroke in [place] Eval: ESR/CRP, Coags, Toxicology, RPR/VDRL, If Febrile-BCx, LP; Hypercoag screen-Protein C Activity, Protein S Ag, Antithrombin III, Activated Protein C resistance, Factor V Leiden, RVVT or APLAbs, Beta-2 GP Ab, Fibrinogen, Prothrombin gene 27337H mutation, MTHFR C677T, JIL-1, HIV, TERE, Lactic Acid, Homocysteine, Cryoglobulin, Complement level, ANCA, Scl-70 Ab, anti -centromere Ab, Anti-Ro (SSA)/Anti-La (SSB), SCAR, Antiproteinase 3, Lipoprotein A, 5. Can lower MAPs by 10-15% daily to reach goal SBP 120-160 as permissive HTN period complete. 6. Secondary stroke prevention: ASA 325mg Daily x 1 then 81mg QDay & upgrade to full dose statin therapy (Crestor 20mg or 40mg OR Lipitor 40mg or 80mg Daily OR Zocor 40mg QDay) for goal LDL < 70. 7. F/E/N: isotonic IVF prn, prn replete, oral diet as pt passed bedside speech/ swallow eval 8. DVT Prophylaxis 9. Stroke education, PT/OT/Speech Therapy consults, CM evaluation 10. For any changes in neurologic status, pls obtain STAT CTH w/o contrast and call neurology 11. Pt can be D/C if SRIKANTH neg for ASD/PFO or other cardiac source of embolism. Subjective Principal diagnosis: slurred speech, weakness Interval history: improving speech Objective - Vital Sign Vital Signs - 12hr 08/22/16 08/22/16 08/22/16 00:05 00:51 05:14 Temperature 97.6 F 98.2 F Pulse Rate 88 Pulse Rate [ 84 63 Apical] Pulse Rate [ Right Radial] Respiratory 18 20 Rate Blood Pressure 121/68 138/82 [Right Arm] O2 Sat by Pulse 94 100 Oximetry 08/22/16 08:56 Temperature 98.1 F Pulse Rate Pulse Rate [ Apical] Pulse Rate [ 65 Right Radial] Respiratory 18 Rate Blood Pressure 133/80 [Right Arm] O2 Sat by Pulse 99 Oximetry - General Apperance Constitutional: comfortable - EENT EENT: ATNC, PERRL, mucous membranes moist, hearing intact, vision intact - Respiratory Respiratory: chest non-tender, normal breath sounds, no respiratory distress - Cardiovascular Cardiovascular: regular rate Extremities: no peripheral edema bilat, no clubbing, cyanosis, no inflammation, no ischemia or petechiae - Gastrointestinal Gastrointestinal: normoactive bowel sounds, non-distended - Integumentary Integumentary: normal - Neurologic Cranial nerve examination: PERRL, EOMI, VFF, V1/V2/V3 grossly intact, face symmetric, tongue midline, intact, intact shoulder shrug, intact cough reflex, Intact Vestibulo-ocular r, intact corneal reflex, normal palatal elevation Speech examination: intact Detailed motor examination: full strength in all radha Motor examination - right side: 5/5: biceps, triceps, wrist flexion, wrist extension, 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, hip flexors, knee extensors, dorsiflexion, toe extension (EHL) , plantarflexion Motor examination - left side: 5/5: biceps, triceps, wrist flexion, wrist extension, 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, hip flexors, knee extensors, dorsiflexion, toe extension (EHL) , plantarflexion Detailed sensory examination: intact, light touch Reflex and gait examination: intact Reflexes: 2+: ankle, bicep, knee, tricep - Musculoskeletal Musculoskeletal: no fluid collection, no pain, normal range of motion - Psychiatric Psychiatric: mood/affect appropriate, cooperative - Laboratory Findings CBC and BMP: 08/19/16 14:05 08/21/16 00:19 Abnormal Lab Findings: Abnormal Labs 08/19/16 08/19/16 08/20/16 16:20 19:51 04:19 Fibrinogen Potassium Creatinine Glucose POC Glucose 121 H HDL Cholesterol 62 H Urine pH 8.0 H 08/20/16 08/21/16 13:36 12:15 Fibrinogen 521 H Potassium 3.4 L Creatinine 0.6 L Glucose 102 H POC Glucose HDL Cholesterol Urine pH
[2016-08-22] MEDS: PEPCID PO SCH (10:01)
[2016-08-22] MEDS: K-DUR PO SCH (10:01)
[2016-08-22] MEDS: COLACE PO SCH (10:01)
[2016-08-22] MEDS: ASPIRIN PO SCH (10:05)
[2016-08-22] MEDS ORDERED: ASPIRIN PO SCH (10:50)
--- NOTE | 2016-08-22 10:57 | Progress Note ---
Assessment and Plan Suspected CVA normal myocardial perfusion on MPI this admission normal LVEF on echo Head CT negative for acute intracranial process MRA of head reports no acute abnormalities For planned SRIKANTH today. Subjective Date of service: 08/22/16 Principal diagnosis: slurred speech, weakness Interval history: For SRIKANTH today. Objective Vital Signs Temp Pulse Pulse Pulse Pulse Resp BP 08/22/16 10:00 18 08/22/16 08:56 98.1 F 65 18 133/80 08/22/16 05:14 98.2 F 63 20 138/82 08/22/16 00:51 88 08/22/16 00:05 97.6 F 84 18 121/68 08/21/16 20:50 72 20 08/21/16 19:48 98.9 F 88 20 111/63 08/21/16 18:06 98.4 F 90 18 133/69 08/21/16 13:00 99 H Pulse Ox 08/22/16 10:00 08/22/16 08:56 99 08/22/16 05:14 100 08/22/16 00:51 08/22/16 00:05 94 08/21/16 20:50 08/21/16 19:48 97 08/21/16 18:06 96 08/21/16 13:00 - Physical Examination General: No Apparent Distress HEENT: Positive: PERRL Neck: Positive: trachea midline Cardiac: Positive: Reg Rate and Rhythm Lungs: Positive: Decreased Breath Sounds Neuro: Positive: Grossly Intact - EKG Sinus rhythms and dysrhythmias: sinus rhythm
[2016-08-22] MEDS ORDERED: VERSED IV ONE ×2 (12:38→12:47)
[2016-08-22] MEDS ORDERED: HURRICAINE ONE 20% TOPICAL SPRAY MM (12:38)
[2016-08-22] MEDS ORDERED: SUBLIMAZE ONE (12:38)
[2016-08-22] MEDS ORDERED: SUBLIMAZE IV ONE (12:47)
[2016-08-22] MEDS ORDERED: HURRICAINE ONE 20% TOPICAL SPRAY MM NR (13:00)
--- NOTE | 2016-08-22 14:13 | Progress Note ---
Assessment and Plan Assessment and plan: Acute CVA with right-sided weakness and dysarthria Hypokalemia, likley due to poor oral intake Left sided chest pain, ACS rulled out, liklely musculoskeletal Obesity, likely due to access calorie Patent foramen Ovale, out patient follow up Plan: cont with stroke protocol MRI of the head showed acute CVA, carotid Doppler shows <50% stenosis, 2-D echocardiogram with normal EF, stress test normal neurology following and recommended SRIKANTH with bubble study and hypercoaguable work up SRIKANTH showed PFO, will get venous doppler of the LE for possible DVT cont GI and DVT Px cont on aspirin and statin History Interval history: Patient seen and examined. Medical records and medication list reviewed. No acute event overnight noted by the RN. Patient is asymptomatic today s/p SRIKANTH today and that showed patent PFO Discussed plan of care at bedside with patient. Hospitalist Physical - Physical exam Narrative exam: GENERAL: well-developed obese AAF lying on bed appeared to be in no discomfort. HEENT: Normocephalic. Atraumatic. No conjunctival congestion or icterus. Patient has moist mucous membranes. NECK: Supple. Trachea midline. CHEST/LUNGS: Clear to auscultated bilaterally, breathing nonlabored. No wheezes crackles or rhonchi. HEART/CARDIOVASCULAR: Regular in rate and rhythm. S1 and S2 positive. ABDOMEN: Abdomen is soft, nontender. Patient has normal bowel sounds. SKIN: There is no rash. Warm and dry. NEURO: No focal motor deficit. Follows command. speech normal MUSCULOSKELETAL: No joint effusion or tenderness. EXTRIMITY: No edema, no cyanosis or clubbing. PSYCH: Cooperative. - Constitutional Vitals: Temp Pulse Resp BP Pulse Ox 98.8 F 86 18 121/58 99 08/22/16 13:25 08/22/16 13:25 08/22/16 13:25 08/22/16 13:25 08/22/16 13:25 General appearance: Present: no acute distress Results - Labs CBC & Chem 7: 08/19/16 14:05 08/21/16 00:19 Labs: Laboratory Last Values WBC 6.3 K/mm3 (4.5-11.0) 08/19/16 14:05 RBC 4.73 M/mm3 (3.65-5.03) 08/19/16 14:05 Hgb 11.8 gm/dl (10.1-14.3) 08/19/16 14:05 Hct 37.3 % (30.3-42.9) 08/19/16 14:05 MCV 79 fl (79-97) 08/19/16 14:05 MCH 25 pg (28-32) L 08/19/16 14:05 MCHC 32 % (30-34) 08/19/16 14:05 RDW 16.0 % (13.2-15.2) H 08/19/16 14:05 Plt Count 282 K/mm3 (140-440) 08/19/16 14:05 Lymph % (Auto) 41.0 % (13.4-35.0) H 08/19/16 14:05 [place] % (Auto) 10.2 % (0.0-7.3) H 08/19/16 14:05 Eos % (Auto) 1.7 % (0.0-4.3) 08/19/16 14:05 Baso % (Auto) 0.4 % (0.0-1.8) 08/19/16 14:05 Lymph # 2.6 K/mm3 (1.2-5.4) 08/19/16 14:05 [place] # 0.6 K/mm3 (0.0-0.8) 08/19/16 14:05 Eos # 0.1 K/mm3 (0.0-0.4) 08/19/16 14:05 Baso # 0.0 K/mm3 (0.0-0.1) 08/19/16 14:05 Seg Neutrophils % 46.7 % (40.0-70.0) 08/19/16 14:05 Seg Neutrophils # 2.9 K/mm3 (1.8-7.7) 08/19/16 14:05 ESR 41 mm/Hr (0-20) 08/21/16 12:15 PT 12.0 Sec. (12.2-14.9) L 08/19/16 14:05 INR 0.90 (0.87-1.13) 08/19/16 14:05 APTT 29.6 Sec. (24.2-36.6) 08/19/16 14:05 Thrombin Time 15.8 Sec. (15.1-19.6) 08/19/16 Unknown Fibrinogen 521 mg/dl (211-480) H 08/21/16 12:15 Sodium 142 mmol/L (137-145) 08/20/16 13:36 Potassium 3.7 mmol/L (3.6-5.0) 08/21/16 00:19 Chloride 104.9 mmol/L (98-107) 08/20/16 13:36 Carbon Dioxide 23 mmol/L (22-30) 08/20/16 13:36 Anion Gap 18 mmol/L 08/20/16 13:36 BUN 7 mg/dL (7-17) 08/20/16 13:36 Creatinine 0.6 mg/dL (0.7-1.2) L 08/20/16 13:36 Estimated GFR > 60 ml/min 08/20/16 13:36 BUN/Creatinine Ratio 11.66 % 08/20/16 13:36 Glucose 102 mg/dL (65-100) H 08/20/16 13:36 POC Glucose 121 (70-105) H 08/19/16 19:51 Lactic Acid 0.8 mmol/L (0.7-2.0) 08/21/16 12:15 Calcium 8.4 mg/dL (8.4-10.2) 08/20/16 13:36 Troponin T < 0.010 ng/mL (0.00-0.029) 08/21/16 04:29 C-Reactive Protein 0.20 mg/dL (0.00-1.30) 08/21/16 12:15 NT-Pro-B Natriuret Pep 77.60 pg/mL (0-450) 08/19/16 14:25 Triglycerides 56 mg/dL (2-149) 08/20/16 04:19 Cholesterol 167 mg/dL (50-199) 08/20/16 04:19 LDL Cholesterol Direct 94 mg/dL (50-130) 08/20/16 04:19 HDL Cholesterol 62 mg/dL (40-59) H 08/20/16 04:19 Cholesterol/HDL Ratio 2.69 % 08/20/16 04:19 Urine Color Yellow (Yellow) 08/19/16 16:20 Urine Turbidity Cloudy (Clear) 08/19/16 16:20 Urine pH 8.0 (5.0-7.0) H 08/19/16 16:20 Ur Specific [place] 1.014 (1.003-1.030) 08/19/16 16:20 Urine Protein <15 mg/dl mg/dL (Negative) 08/19/16 16:20 Urine Glucose (UA) Neg mg/dL (Negative) 08/19/16 16:20 Urine Ketones Neg mg/dL (Negative) 08/19/16 16:20 Urine Blood Neg (Negative) 08/19/16 16:20 Urine Nitrite Neg (Negative) 08/19/16 16:20 Urine Bilirubin Neg (Negative) 08/19/16 16:20 Urine Urobilinogen < 2.0 mg/dL (<2.0) 08/19/16 16:20 Ur Leukocyte Esterase Neg (Negative) 08/19/16 16:20 Urine WBC (Auto) < 1.0 /HPF (0.0-6.0) 08/19/16 16:20 Urine RBC (Auto) 2.0 /HPF (0.0-6.0) 08/19/16 16:20 U Epithel Cells (Auto) 4.0 /HPF (0-13.0) 08/19/16 16:20 Urine Bacteria (Auto) 1+ /HPF (Negative) 08/19/16 16:20 Urine Mucus 2+ /HPF 08/19/16 16:20 Urine Opiates Screen Presumptive negative 08/19/16 16:20 Urine Methadone Screen Presumptive negative 08/19/16 16:20 Ur Barbiturates Screen Presumptive negative 08/19/16 16:20 Ur Phencyclidine Scrn Presumptive negative 08/19/16 16:20 Ur Amphetamines Screen Presumptive negative 08/19/16 16:20 U Benzodiazepines Scrn Presumptive negative 08/19/16 16:20 Urine Cocaine Screen Presumptive negative 08/19/16 16:20 U Marijuana (THC) Screen Presumptive negative 08/19/16 16:20 Drugs of Abuse Note Disclamer 08/19/16 16:20 Plasma/Serum Alcohol < 0.01 gm% (0-0.07) 08/19/16 14:25 RPR Nonreactive (Nonreactive) 08/21/16 12:15 HIV 1&2 Antibody Rapid Non react (Non React) 08/21/16 12:15 HIV P24 Antigen Non react (Non React) 08/21/16 12:15
[2016-08-22 15:56] VITALS: BP 117/76
--- NOTE | 2016-08-22 16:14 | Discharge Summary ---
Providers - Providers Date of Admission: 08/19/16 15:21 Date of discharge: 08/22/16 Attending physician: MICHELLE GALICIA 08/19/16 Consult to Physician [CONS] Routine Consulting Provider: NBA BURTON Reason For Exam: acute cva Place consult to:: neurology Notified:: Rio JORDAN Phone number called:: Ext [phone] Was contact made?: Yes If yes, spoke with:: Voicemail with consult info left for Jazminchase RodasOsiel Time called:: 08:01 08/19/16 19:00 Consult to Case Management [CONS] Routine Services Needed at Discharge: Echocardiographer Notified:: Case Management Was contact made?: Yes Consult to Dietitian/Nutrition [CONS] Routine Physician Instructions: Reason For Exam: Reason for Consult: Nutrition Recommendations Reason for Consult: Diet education Occupational Therapy Evaluate and Treat [CONS] Routine Comment: Reason For Exam: Neuro deficits Physical Therapy Evaluation and Treat [CONS] Routine Comment: Reason For Exam: Neuro deficits 08/19/16 19:02 Speech Therapy Evaluation and Treat [CONS] Routine Reason For Exam: swallow eval 08/21/16 13:24 Consult to Physician [CONS] Routine Consulting Provider: JAZMYN LI Reason For Exam: SRIKANTH Place consult to:: cardiology rehabilitation program manager Notified:: Zeynep MATIAS Was contact made?: Yes If yes, spoke with:: Julio Time called:: 14:53 Primary care physician: USER SUPPORT ANALYST SUPERVISOR Hospitalization Condition: Stable Hospital course: Discharge diagnosis: Acute CVA with right-sided weakness and dysarthria Hypokalemia, likley due to poor oral intake Left sided chest pain, ACS rulled out, liklely musculoskeletal Obesity, likely due to access calorie Patent foramen Ovale, out patient follow up Disposition: DC/TX HOME UNDER HOME HEALTH Time spent for discharge: 34 minutes Core Measure Documentation - Palliative Care Palliative Care/ Comfort Measures: Not Applicable - Core Measures Any of the following diagnoses?: stroke - Stroke Discharge Requirements Statin for LDL = or >70 mg/dl on DC: Yes Anticoag for atrial fib/atrial flutter: Not Applicable Antithrombotic for ischemic stroke: Yes Exam - Physical Exam Narrative exam: GENERAL: well-developed obese AAF lying on bed appeared to be in no discomfort. HEENT: Normocephalic. Atraumatic. No conjunctival congestion or icterus. Patient has moist mucous membranes. NECK: Supple. Trachea midline. CHEST/LUNGS: Clear to auscultated bilaterally, breathing nonlabored. No wheezes crackles or rhonchi. HEART/CARDIOVASCULAR: Regular in rate and rhythm. S1 and S2 positive. ABDOMEN: Abdomen is soft, nontender. Patient has normal bowel sounds. SKIN: There is no rash. Warm and dry. NEURO: No focal motor deficit. Follows command. speech normal MUSCULOSKELETAL: No joint effusion or tenderness. EXTRIMITY: No edema, no cyanosis or clubbing. PSYCH: Cooperative. - Constitutional Vitals: Temp Pulse Resp BP Pulse Ox 98.4 F 72 18 117/76 100 08/22/16 15:55 08/22/16 15:55 08/22/16 15:55 08/22/16 15:55 08/22/16 15:55 Plan Activity: fall precautions Weight Bearing Status: Weight Bear as Tolerated Diet: low cholesterol, low salt Follow up with: PRIMARY CARE, [Primary Care Provider] - 7 Days Prescriptions: Simvastatin [Zocor TAB] 40 mg PO QHS #30 tablet Aspirin [Aspirin BABY CHEW TAB] 81 mg PO QDAY #30 tab.chew Pending Studies f/u with Dr. Li on at 1:40pm
--- NOTE | 2016-08-22 17:30 | Vascular Lab Report ---
LOWER EXTREMITY VENOUS DUPLEX: REASON FOR EXAM: Paradoxical embolus. COMMENTS ON THE RIGHT: All veins visualized are freely compressible without evidence of internal echogenicity. Flow is spontaneous and phasic throughout. COMMENTS ON THE LEFT: All veins visualized are freely compressible without evidence of internal echogenicity. Flow is spontaneous and phasic throughout. IMPRESSION: No evidence of acute or chronic deep venous thrombosis in either lower extremity.
[2016-08-22 22:27] LABS: Myeloperoxidase Antibody <1.0 AI (<1.0)
[2016-08-23] MEDS ORDERED: BABY ASPIRIN PO SCH (10:00)
--- NOTE | 2016-08-26 07:26 | Vascular Lab Report ---
CAROTID DUPLEX STUDY: RIGHT PSVEDV CCA [id number] CCA DIST: 8932 ICA PROX:[id number] ICA MID: 8540 ICA DIST: 8942 ECA: 113 VERT: 36 7 LEFT PSVEDV CCA PROX:[id number] CCA DIST:[id number] ICA PROX:[id number] ICA MID: 8745 ICA DIST: 5526 ECA: 118 VERT: 50 14 REASON FOR EXAM: Stroke. COMMENTS ON THE RIGHT: Doppler frequency analysis is consistent with 16 to 49 percent diameter reduction of the internal carotid artery. Minimal amount of plaque is seen. The common carotid artery is patent. The external carotid artery is patent. The vertebral artery has antegrade flow. COMMENTS ON THE LEFT: Doppler frequency analysis is consistent with 16 to 49 percent diameter reduction of the internal carotid artery. Minimal amount of plaque is seen. The common carotid artery is patent. The external carotid artery is patent. The vertebral artery has antegrade flow. IMPRESSION: Less than 50% diameter reduction in the internal carotid arteries bilaterally. Consider repeat carotid artery duplex in 12 months.
== END 2016-08-22 18:36 | disposition home health service (06) | DRG 65 ==
LOC: ED 13:58 → 4A 15:21
PROVIDERS: ADMIT Internal Medicine; ATTEND Internal Medicine
DX: I63.8 Other cerebral infarction (principal); G81.91 Hemiplegia, unspecified affecting right dominant side; Q21.1 Atrial septal defect; I10 Essential (primary) hypertension; Z82.3 Family history of stroke; R07.89 Other chest pain; R47.1 Dysarthria and anarthria; E87.6 Hypokalemia; E66.9 Obesity, unspecified; Z68.34 Body mass index [BMI] 34.0-34.9, adult; Z60.2 Problems related to living alone; Z82.49 Family history of ischemic heart disease and other diseases of the circulatory system
CPT/HCPCS: 36415; 70450; 70544; 70549; 70551; 78452; 80048; 80061; 80307; 80320; 81001; 82140; 82164; 82962; 83516; 83880; 84132; 84484; 85025; 85210; 85301; 85305; 85307; 85384; 85610; 85613; 85652; 85670; 85730; 86021; 86038; 86140; 86147; 86160; 86235; 86592; 87806; 93005; 93010; 93017; 93306; 93312; 93320; 93325; 93880; 93970; A9502; A9577; G0480; J2250; J2785; J3010; J7030